=== PATIENT | female | born 1990 | race Two or more races ===

== ENCOUNTER 2024-01-24 13:22 | Emergency (ER) | payer MEDICAID, SELFPAY ==
[2024-01-24 13:53] VITALS: BP 136/85; PULSE 70; RESP 16; TEMP 37; O2SAT 97; BMI 34.2
--- NOTE | 2024-01-24 14:18 | XR_ITS ---
Examination: Lumbar spine 3 views Technique: AP lateral coned lateral lower lumbar spine 3 views Exam date and time: January 24, 2024 1439 hrs. Indications: Low back pain beginning this week Findings: Satisfactory alignment lumbar vertebral bodies No lumbar fracture Moderate disc narrowing L5-S1 with posterior osteophyte formation Impression: Moderate degenerative disc disease L5-S1 with spinal stenosis
--- NOTE | 2024-01-24 14:18 | PD.EDBACK ---
ED Back Injury Pain RME/HPI General Chief Complaint: Back Pain/Injury Stated Complaint: LOWER BACK PAIN X2 DAYS Time Seen by Provider: 01/24/24 14:18 Source: patient Arrival date/time: 01/24/24 13:22 33-year-old female with past medical history of tubal ligation presents emergency department complaining of low back pain that radiates down to her right leg that is been ongoing for several days. Patient reports has history of similar episodes and was diagnosed with muscle spasm. Patient reports is on her feet a lot at work. Mode of arrival: ambulatory Limitations: no limitations Related Data Previous Rx's ?Medication ?Instructions ?Recorded omeprazole 20 mg capsule,delayed 20 mg PO QDAY #14 caps 12/31/21 release cyclobenzaprine 10 mg tablet 10 mg PO TID PRN muscle spasm #10 01/24/24 tabs ibuprofen 600 mg tablet 600 mg PO Q8H PRN pain #20 tabs 01/24/24 Allergies Allergy/AdvReac Type Severity Reaction Status Date / Time No Known Allergies Allergy Verified 01/24/24 13:23 Review of Systems Review of Systems Systems Reviewed: All systems reviewed, normal except as documented Constitutional Constitutional: Reports system reviewed and no additional complaints, except as documented, Denies body ache(s), Denies chills and Denies fever(s) Eyes Eyes: Reports system reviewed and no additional complaints, except as documented and Denies change in vision ENT Ears, Nose, Mouth, and Throat: Reports system reviewed and no additional complaints, except as documented, Denies disequilibrium, Denies dizziness, Denies sore throat and Denies vertigo Cardiovascular Cardiovascular: Reports system reviewed and no additional complaints, except as documented, Denies chest pain and Denies dyspnea Respiratory Respiratory: Reports system reviewed and no additional complaints, except as documented, Denies chest congestion, Denies cough and Denies dyspnea Gastrointestinal Gastrointestinal: Reports system reviewed and no additional complaints, except as documented, Denies abdominal pain, Denies nausea and Denies vomiting Musculoskeletal Musculoskeletal: Reports system reviewed and no additional complaints, except as documented, Denies abnormal gait, Reports arthralgias and Reports back pain Integumentary/Breasts Skin/Breast: Reports system reviewed and no additional complaints, except as documented, Denies erythema, Denies rash and Denies wounds Neurologic Neurologic: Reports system reviewed and no additional complaints, except as documented, Denies abnormal gait, Denies disequilibrium, Denies dizziness and Denies vertigo Past Medical History Past Medical History NEUROLOGIC: Negative Neurological Disorders or Seizures CARDIAC: Negative Cardiac Disorders, Congestive Heart Failure, Edema, Cellulitis or Varicose Veins RESPIRATORY: Negative Chronic Obstructive Pulmonary Disease (COPD), Pneumonia, Tuberculosis or Sleep Apnea GASTROINTESTINAL: Positive Gastrointestinal Disorders and Ulcer (AT 13 YRS OLD); Negative Hepatitis GENITOURINARY: Negative Genitourinary Disorders or Renal Disease REPRODUCTIVE: Positive Previous Pregnancies () MUSCULOSKELETAL: Negative Musculoskeletal Disorders ENDOCRINE: Negative Endocrine Disorders, Diabetes Mellitus Type 1 or Diabetes Mellitus Type 2 HEMATOLOGIC: Negative Blood Disorders PSYCHO/SOCIAL: Negative Depression or Post Traumatic Stress Disorder OTHER HISTORY: Positive Chicken Pox; Negative Hospitalization, Autoimmune Disease, Shingles, Falls, Blood Transfusions, Blood Transfusion Reaction, Anesthesia Reactions, Chemotherapy, Radiation Therapy, MRSA, Measles, Mumps or Cancer Family History FAMILY HISTORY: Positive Family Respiratory Disorders (SISTER (ASTHMA)), Family Cardiac Disorders (MOTHER (HEART,HTN)) and Family Surgery (MOTHER); Negative Family Psychiatric Problems, Family Gastrointestinal Problems, Family Cancer or Family Anesthesia Reaction Surgical History SURGICAL: Negative Cardiac Surgery, Pacemaker, Endocrine Surgery, Ear Surgery, Abdominal Surgery, Nephrectomy, Joint Replacement, Neurologic Surgery or Mastectomy Social History SMOKING STATUS: Never smoker ED Exam General Limitations: Present no limitations General appearance: Present alert and in no apparent distress Head Head exam: Present atraumatic Eye Eye exam: Present normal appearance, PERRL and EOMI ENT ENT exam: Present normal exam, normal oropharynx and mucous membranes moist Neck Neck exam: Present normal inspection, full ROM and trachea midline Chest Chest inspection: Present normal inspection and symmetric chest wall rise Respiratory Respiratory exam: Present normal lung sounds bilaterally Cardiovascular Cardiovascular exam: Present regular rate, normal rhythm and normal heart sounds Abdominal Exam Abdominal exam: Present soft and normal bowel sounds Extremities Exam Extremities exam: Present normal inspection and full ROM Back Exam Back exam: Present normal inspection, full ROM, tenderness (Lower back) and straight leg raise (R) Neurological Exam Neurological exam: Present alert, oriented X3, CN II-XII intact and normal gait Psychiatric Psychiatric exam: Present normal affect and normal mood Skin Skin exam: Present warm, dry, intact and normal color Course Quality Measures none Orders Category Date Time Status XR lumbar spine 2-3V Stat Exams 01/24/24 14:18 Completed CYCLObenzaPRINE [Flexeril] Med 01/24/24 14:18 Discontinued 5 mg PO X1 ONE Ketorolac Inj [Toradol Inj] Med 01/24/24 14:18 Discontinued 30 mg IM X1 ONE Vital Signs Vital signs: Vital Signs Temperature 98.6 F 01/24/24 13:53 Pulse Rate 70 01/24/24 13:53 Respiratory Rate 16 01/24/24 13:53 Blood Pressure 136/85 H 01/24/24 13:53 Pulse Oximetry (%) 97 01/24/24 13:53 Oxygen Delivery Method Room Air 01/24/24 13:53 97% room air within normal limits Back Pain / Injury MDM Narrative MDM Narrative:: 33-year-old female with past medical history of tubal ligation presents emergency department complaining of low back pain that radiates down to her right leg that is been ongoing for several days. Patient reports has history of similar episodes and was diagnosed with muscle spasm. Patient reports is on her feet a lot at work. Patient denies any fever, chills, hematuria, diarrhea, flank pain, bowel or bladder dysfunction, or any other associated symptom. Lumbar x-ray finding degenerative disc disease. Patient appears nontoxic and hemodynamically stable. Patient reported improvement in pain after given pain medication. Patient discharged home and instructed to follow-up with primary care provider and request referral for physical therapy or MRI of lower back if symptoms persist. Instructed to return to emergency department for any worsening symptoms or as needed Patient data External records reviewed:: [facility] previous records Clinical information provided by:: patient Social determinants that could affect healthcare access:: none Patient has the following chronic illnesses:: See chart How is presenting disease/condition affected by chronic disease/condition?: uneffected by Evaluation data The following diagnostics were reviewed and interpreted by me:: radiology exam(s) Lab and/or radiology exams considered but not ordered:: Ordered Interpretation Summary: Interpreted by me Medications / Prescriptions Medications or Prescriptions considered but not ordered:: Ordered Medication administrations:: Medication Administration History Discontinued Medications Cyclobenzaprine HCl (Cyclobenzaprine 5 Mg Tablet) 5 mg PO X1 ONE Stop: 01/24/24 14:19 Last Admin: 01/24/24 14:33 Dose: 5 mg Documented By: BEAR Ketorolac Tromethamine (Ketorolac Inj 60 Mg/2 Ml Vial) 30 mg IM X1 ONE Stop: 01/24/24 14:19 Last Admin: 01/24/24 14:33 Dose: 30 mg Documented By: BEAR Given Consultations Consultation(s) initiated? (list below): No Diagnosis Differential diagnosis back pain/injury: lumbar radiculopathy, sciatica, strain of lumbar region, renal colic, AAA and discitis Most likely diagnosis given after review of the tests above:: Back pain Degenerative disc disease Admission Indicated Admission indicated?: not indicated Admission Request Was there a request for admission?: No Disposition Plan Disposition Plan: Discharge Discharge Attestation Discharge Attestation: The patient and all family members were given an opportunity to ask questions and understood the discharge instructions. Discharge instructions specifically effects, indications for sooner follow up or return to the emergency department, and the expected course of current diagnosis. Patient condition: Stable Discharge Plan Plan Patient Disposition: HOME (Self Care) Disposition Comment: Stable Prescriptions/Referrals Prescriptions/Med Rec: New cyclobenzaprine 10 mg tablet 10 mg PO TID PRN (Reason: muscle spasm) Qty: 10 0RF ibuprofen 600 mg tablet 600 mg PO Q8H PRN (Reason: pain) Qty: 20 0RF No Action omeprazole 20 mg capsule,delayed release(DR/EC) 20 mg PO QDAY Qty: 14 0RF Referrals: Bryan Cowart MD [Primary Care Provider] - In 1 week Problem List Clinical Impression: Degenerative disc disease, Back pain Patient/Caregiver Discharge Instructions Discharge Activity: activity as tolerated Education Materials: Back Safety: Bending, Back Safety: Standing, ED Back Care Tips Additional Instructions: Take medication as prescribed please follow-up with primary care provider upon discharge and request referral to physical therapy or MRI of lower back if symptoms persist. Return to the emergency department for any worsening symptoms or as needed. Print Language: Slovenian Stand Alone Forms: Connie Award Info., Patient Portal Info Letter Attestation Attestation The patient was seen by the midlevel practitioner. I, the co-signing physician, was present during the entire ER visit. While I did not physically examine the patient, I was available for consultation as needed.
[2024-01-24] MEDS: CYCLObenzaPRINE 5 MG TABLET PO (14:33)
[2024-01-24] MEDS: KETOROLAC INJ 60 MG/2 ML VIAL 30 MG IM (14:33)
== END 2024-01-24 15:15 | disposition home or self-care (01) ==
PROVIDERS: Emergency Provider Emergency Medicine; PCP Family Medicine
DX: M51.370 Other intervertebral disc degeneration, lumbosacral region with discogenic back pain only (principal)
CPT/HCPCS: 72100; 96372; 99283; J1885; A9270

== ENCOUNTER → 2024-04-16 | Outpatient (CLI) | payer MEDICAID, SELFPAY ==
--- NOTE | 2024-04-16 16:00 | XR_ITS ---
Examination: MRI lumbar spine without contrast Date and time of exam: April 16, 2024 at 1803 hours INDICATIONS: Low back pain beginning one year ago, severe Technique: Multiple MRI axial and sagittal sections lumbar spine. Sagittal T2-weighted images, TR 3500, TE 118 T1 weighted transverse sections, TR 688 T8.5, T2-weighted sagittal sections T1 weighted sagittal sections TR 621, TE 30 T2 axial sections, TR 4, 190, TE 84. Findings: Adequate alignment lumbar vertebral bodies on the lateral view. No lumbar fracture. Normal marrow signal lumbar vertebral bodies. Disc desiccation at the lower 2 lumbar levels. No spondylolisthesis. L5-S1 large, 11 mm right paracentral subarticular disc, extruded, displacing the right S1 nerve root L4-L5 3 mm central lumbar disc bulge More cephalad levels are unremarkable IMPRESSION: L5-S1 11 mm right paracentral subarticular disc displacing the right S1 nerve root
== END | disposition home or self-care (01) ==
PROVIDERS: PCP Family Medicine; Referring Provider Family Medicine; Visit Provider Family Medicine
DX: M51.379 Other intervertebral disc degeneration, lumbosacral region without mention of lumbar back pain or lower extremity pain (principal)
CPT/HCPCS: 72148